=== PATIENT | female | born 1935 | race Caucasian/White ===

== ENCOUNTER 2018-10-19 05:43 | Observation (INO) | payer MEDICARE ==
[~2018-10-19] VITALS: Ht 165.1 cm; Wt 120.8 kg
[2018-10-20 09:15] VITALS: BP 100/62
== END 2018-10-20 10:10 | disposition home or self-care (01) ==
LOC: OUT 05:43 → 4NOR 10:50 → OUT 10:55 → DCLOUNGE 10-20 09:49
PROVIDERS: ADMIT Surgery; ATTEND Surgery
DX: C50.512 Malignant neoplasm of lower-outer quadrant of left female breast (principal); I10 Essential (primary) hypertension; Z79.82 Long term (current) use of aspirin; Z79.899 Other long term (current) drug therapy; Z90.710 Acquired absence of both cervix and uterus
CPT/HCPCS: 19307; 36415; 80053; 85025; 85610; 85730; 88305; 88307; 93005; 96365; 96366; C1729; G0378; J0171; J0330; J0690; J1100; J2405; J2704; J2710; J3010; J3480; J3490; J7120; S0020

== ENCOUNTER → 2019-04-16 | Outpatient (CLI) | payer MEDICARE, OTHER ==
[~2019-04-16] MED LIST: ANAS1TAB PO; ASPI-496 PO; HYDR-3240 PO; LISI1TAB19 PO; RANI150T4 PO
== END | disposition home or self-care (01) ==
LOC: ROC 03-08 08:24 → EDSTATUS 03-08 19:00 → ROC 09:58
PROVIDERS: ATTEND Radiology Radiation Oncology
DX: C50.512 Malignant neoplasm of lower-outer quadrant of left female breast (principal); Z90.12 Acquired absence of left breast and nipple
CPT/HCPCS: G0463